=== PATIENT | male | born 1945 | race Hispanic/Latino ===

== ENCOUNTER 2019-01-13 17:43 | Inpatient (IN) | payer MEDICAID, MEDICARE, OTHER ==
[2019-01-13] VITALS (9 sets, daily range): BP systolic 97–177; BP diastolic 49–85
[2019-01-13] MEDS ORDERED: BIVALIRUDIN 250 MG/VIAL IV ONE (18:22)
[2019-01-13] MEDS ORDERED: LIDOCAINE HCL 2% 20ML ONE ×2 (18:23→18:26)
[2019-01-13] MEDS ORDERED: FENTANYL CITRATE PF 50 MCG/1 ML 2ML VIAL ONE (18:23)
[2019-01-13] MEDS ORDERED: IOHEXOL 350 MG/ML 100ML INFUS..BTL IV ONE (18:23)
[2019-01-13] MEDS ORDERED: NITROGLYCERIN 5 MG/ML 10 ML VIAL IV ONE (18:23)
[2019-01-13] MEDS ORDERED: IOHEXOL-350 50ML VIAL IV ONE (18:23)
[2019-01-13] MEDS ORDERED: MIDAZOLAM HCL 1 MG/ML 2ML VIAL ONE (18:23)
[2019-01-13] MEDS ORDERED: DOPAMINE HCL 400 MG/D5%-WATER 0 ML IV ONE (18:37)
[2019-01-13] MEDS ORDERED: ATROPINE SULFATE 0.1 MG/ML 10 ML SYG IVP ONE (18:37)
[2019-01-13] MEDS ORDERED: MORPHINE SULFATE 4 MG/1ML SYG ONE (18:46)
[2019-01-13] MEDS ORDERED: HEPARIN SODIUM 1000UNIT/ML 10ML VIAL ONE (18:51)
[2019-01-13] MEDS ORDERED: TICAGRELOR 90 MG TABLET ONE (19:44)
[2019-01-13] MEDS ORDERED: HYDRALAZINE HCL 20 MG/ML VIAL IV PRN (19:45)
[2019-01-13] MEDS ORDERED: GLUCAGON 1MG KIT 1 MG ML IM PRN (19:45)
[2019-01-13] MEDS ORDERED: SODIUM CHLORIDE 0.9% 1000ML 1,000 ML IV SCH (19:45)
[2019-01-13] MEDS ORDERED: DEXTROSE 50%-WATER 50 ML DISP.SYRIN IV PRN (19:45)
--- NOTE | 2019-01-13 20:25 | NUR ---
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 NITROGLYCERINE DRIP INFUSING AT 10 MCG FROM LAB. DENIES PAIN. [address] [place] ART[address] IN [address]ACE TO RT FEMORAL AREA. ART LINE LEVELED AND ZEROED AND PLACED TO MONITOR WITH GOOD WAVE FORM PRESENT. DENIES PAIN. INSTRUCTED TO KEEP RT LEG STRAIGHT AND BEDREST TILL AM AFTER LINE IS DC.D. ASSESSMENT COMPLETED SEE FLOW SHEET. INSTRUCTED TO CALL FOR PAIN,NUMBNESS IN RT LEG. ALSO TO CALL FOR SOB AND CP. CALL LIGHT PLACED BY HIM.
[2019-01-13 20:40] LABS: HEMOGLOBIN A1C 6.1 % (4.0-6.0)
[2019-01-13] MEDS: INSULIN HUMULIN R 100 UNIT/ML 3ML SQ SCH (21:00)
[2019-01-13] MEDS: TICAGRELOR 90 MG TABLET PO SCH (21:00)
[2019-01-13 21:12] LABS: TROPONIN I 9.66 ng/mL (0.00-0.06)
[2019-01-13] MEDS: ATORVASTATIN CALCIUM 40 MG TABLET PO SCH (22:05)
[2019-01-13] MEDS: CARVEDILOL 6.25 MG TABLET PO SCH (22:06)
[2019-01-14] VITALS (22 sets, daily range): BP systolic 86–132; BP diastolic 34–74
[2019-01-14 03:51] LABS: HEMATOCRIT 37.3 % (42-54); MEAN CORPUSCULAR HEMOGLOBIN 27.7 pg (27.0-33.0); MEAN CORPUSCULAR VOLUME 83.8 fL (79-99); PLATELET COUNT (AUTO) 190 K/uL (130-400); RED BLOOD CELL COUNT(AUTO) 4.46 MIL/uL (4.50-6.20); RED CELL DISTRIBUTION WIDTH 15.3 % (11.0-15.5); WHITE BLOOD COUNT (AUTO) 9.8 K/uL (4.8-10.8)
[2019-01-14 04:25] LABS: CREATININE 1.1 mg/dL (0.5-1.5); POTASSIUM 4.5 mmol/L (3.5-5.1)
[2019-01-14] MEDS ORDERED: ATROPINE SULFATE 0.1 MG/ML 10 ML SYG IVP ONE (05:52)
--- NOTE | 2019-01-14 06:31 | NUR ---
LINE DC.D RT FEMORAL LINE REMOVED AFTER EXPLAINING THE PROCESS. PRESSURE HELD FOR 30 MINUTES AND D STAT USES. SITE WITH OUT BLEEDING OR HEMATOMA. PEDAL PULSE PALPABLE. INSTRUCTED NOT TO BEND RT LEG OR RAISE HEAD. TO CALL NURSE IF HE HAS PAIN,NUMBNESS IN RT LEG. OR FEELS WARMTH OR WETNESS IN RT GROIN. REMINDED OF CONTINUED BEDREST FOR 4 HOURS. AND TO KEEP RT LEG STRAIGHT.
[2019-01-14] MEDS: INSULIN HUMULIN R 100 UNIT/ML 3ML SQ SCH ×4 (07:30→21:00)
--- NOTE | 2019-01-14 08:28 | NUR ---
MD ROUNDS DR. SAMPSON MESA IN TO SEE PATIENT. MD INSTRUCTED TO CONT IN ICU, REPEAT TROPONIN THIS AM AND POSSIBLE DOWNGRADE TO PCCU THIS EVENING. WILL CONT TO MONITOR.
[2019-01-14] MEDS ORDERED: ACETAMINOPHEN EXTRA STRENGTH 500 MG TABLET PO PRN (08:30)
[2019-01-14] MEDS ORDERED: ONDANSETRON HCL 4 MG/2 ML VIAL IVP PRN (08:30)
[2019-01-14] MEDS: CARVEDILOL 6.25 MG TABLET PO SCH ×2 (09:28→21:00)
[2019-01-14] MEDS: FAMOTIDINE/PF 20 MG/2 ML VIAL IV SCH ×2 (09:28→21:14)
[2019-01-14] MEDS: TICAGRELOR 90 MG TABLET PO SCH ×2 (09:29→21:13)
[2019-01-14] MEDS: LISINOPRIL 10 MG TABLET PO SCH (09:29)
--- NOTE | 2019-01-14 09:54 | NUR ---
DC PLAN VISITED WITH PATIENT. PATIENT LIVES WITH SPOUSE. INDEPENDENT ABLE TO PERFORM ADL'S. PATIENT HAS NO SERVICES OR DME'S. FEELS SAFE TO RETURN HOME. Addendum: 01/17/19 at 0955 by ABDOUL GONZALEZ RN CM Amended: Links added.
--- NOTE | 2019-01-14 11:01 | NUR ---
TROPONIN LEVEL CALLED TO ELADIO THOMAS.
[2019-01-14] MEDS: IPRATROPIUM 0.5 MG/2.5 ML INH IH PRN ×2 (14:02→18:54)
[2019-01-14] MEDS: ATORVASTATIN CALCIUM 40 MG TABLET PO SCH (21:14)
[2019-01-14] MEDS: GUAIFENESIN-DM 200/20 MG 10 ML PO PRN (21:56)
[2019-01-15] VITALS (14 sets, daily range): BP systolic 110–132; BP diastolic 41–74
--- NOTE | 2019-01-15 01:53 | NUR ---
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 Patient denies any chest pain, alert X3 when awaken, no distress noted.
[2019-01-15 03:54] LABS: HEMATOCRIT 36.2 % (42-54); MEAN CORPUSCULAR HEMOGLOBIN 27.5 pg (27.0-33.0); MEAN CORPUSCULAR HGB CONC 33.1 g/dL (32.0-36.0); MEAN CORPUSCULAR VOLUME 83.1 fL (79-99); PLATELET COUNT (AUTO) 180 K/uL (130-400); RED BLOOD CELL COUNT(AUTO) 4.36 MIL/uL (4.50-6.20); RED CELL DISTRIBUTION WIDTH 15.5 % (11.0-15.5); WHITE BLOOD COUNT (AUTO) 11.7 K/uL (4.8-10.8)
[2019-01-15 04:03] LABS: CREATININE 1.4 mg/dL (0.5-1.5); POTASSIUM 4.1 mmol/L (3.5-5.1)
[2019-01-15] MEDS: INSULIN HUMULIN R 100 UNIT/ML 3ML SQ SCH ×4 (06:05→21:00)
[2019-01-15] MEDS: GUAIFENESIN-DM 200/20 MG 10 ML PO PRN (06:46)
[2019-01-15] MEDS: IPRATROPIUM 0.5 MG/2.5 ML INH IH PRN (06:50)
[2019-01-15] MEDS ORDERED: CLOPIDOGREL BISULFATE 300 MG TAB PO SCH (07:45)
--- NOTE | 2019-01-15 07:47 | NUR ---
ROUNDS DR. CRAWFORD IN TO SEE PATIENT. MD MADE AWARE OF PT'S C/O SOB AND BRADYCARDIA AT HS. MD STATES HE WILL ADJUST BETA-YOLI AND GIVE PATIENT 1 X DOSE OF LASIX 20MG. PT ALSO TO BE DOWNGRADED TO PCCU STATUS. NEW ORDER TO BE CARRIED OUT.
[2019-01-15] MEDS ORDERED: FUROSEMIDE 10 MG/ML 2ML VIAL IV SCH (08:00)
[2019-01-15] MEDS: LISINOPRIL 10 MG TABLET PO SCH (09:06)
[2019-01-15] MEDS: ASPIRIN 81MG TAB.CHEW PO SCH (09:07)
[2019-01-15] MEDS: FAMOTIDINE 20MG TAB 20 MG TAB PO SCH (09:07)
[2019-01-15] MEDS: CARVEDILOL 6.25 MG TABLET PO SCH ×2 (09:07→19:45)
--- NOTE | 2019-01-15 13:42 | NUR ---
PATIENT TRANSFERRED TO ROOM 225. REPORT GIVEN TO DAWIT BLACKBURN.
[2019-01-15] MEDS: ATORVASTATIN CALCIUM 40 MG TABLET PO SCH (19:46)
[2019-01-15] MEDS: MORPHINE SULFATE 2 MG/ML 1ML SYG IV PRN (19:47)
[2019-01-16] MEDS: MORPHINE SULFATE 2 MG/ML 1ML SYG IV PRN ×2 (01:34→02:55)
[2019-01-16 03:36] LABS: BASOPHILS % (AUTO) 0.5 % (0.0-5.0); EOSINOPHILS % (AUTO) 3.8 % (0.0-8.0); HEMATOCRIT 36.5 % (42-54); MEAN CORPUSCULAR HEMOGLOBIN 27.7 pg (27.0-33.0); MEAN CORPUSCULAR HGB CONC 33.3 g/dL (32.0-36.0); MEAN CORPUSCULAR VOLUME 83.1 fL (79-99); MONOCYTES % (AUTO) 10.1 % (3.0-13.0); NEUTROPHILS % (AUTO) 71.6 % (40.0-77.0); NUCLEATED RED BLOOD CELLS 0.1 % (0.0-0.19); PLATELET COUNT (AUTO) 174 K/uL (130-400); RED BLOOD CELL COUNT(AUTO) 4.39 MIL/uL (4.50-6.20); RED CELL DISTRIBUTION WIDTH 15.3 % (11.0-15.5); WHITE BLOOD COUNT (AUTO) 10.5 K/uL (4.8-10.8)
[2019-01-16 03:52] LABS: ALBUMIN 2.4 g/dL (3.5-5.0); BILIRUBIN,TOTAL 0.6 mg/dL (0.2-1.0); CREATININE 1.1 mg/dL (0.5-1.5); TOTAL PROTEIN, SERUM 6.2 g/dL (6.0-8.3)
[2019-01-16 04:20] VITALS: BP 134/55
[2019-01-16] MEDS: INSULIN HUMULIN R 100 UNIT/ML 3ML SQ SCH (06:11)
[2019-01-16] MEDS: IPRATROPIUM 0.5 MG/2.5 ML INH IH PRN (06:23)
[2019-01-16] MEDS ORDERED: ASPI-1005 PO (07:20)
[2019-01-16] MEDS ORDERED: CLOP75TA14 PO (07:20)
[2019-01-16] MEDS ORDERED: CARV6.2579 PO (07:20)
[2019-01-16] MEDS ORDERED: ATOR40TA69 PO (07:20)
[2019-01-16] MEDS ORDERED: LISI10TA7 PO (07:20)
[2019-01-16 07:30] VITALS: BP 106/52
[2019-01-16] MEDS ORDERED: CLOPIDOGREL BISULFATE 75 MG TAB PO SCH (09:00)
[2019-01-16] MEDS: FAMOTIDINE 20MG TAB 20 MG TAB PO SCH (09:16)
[2019-01-16 09:17] VITALS: BP 106/52
[2019-01-16] MEDS: CARVEDILOL 6.25 MG TABLET PO SCH (09:17)
[2019-01-16] MEDS: ASPIRIN 81MG TAB.CHEW PO SCH (09:18)
[2019-01-16] MEDS: LISINOPRIL 10 MG TABLET PO SCH (09:18)
--- NOTE | 2019-01-16 11:18 | NUR ---
cm note met with patient and daughter and instructed on importance of taking Plavix as ordered. did provide the Good rx coupon for assistance which shows med discounted for $10 per month supply , daughter states they can purchase this med.
== END 2019-01-16 11:40 | disposition home or self-care (01) | DRG 246 ==
LOC: 2CH 18:24 → 2DH 01-15 13:50
PROVIDERS: ADMIT Internal Medicine; ATTEND Internal Medicine
PROC: 4A023N7 Measurement of Cardiac Sampling and Pressure, Left Heart, Percutaneous Approach (ICD-10-PCS; principal; 2019-01-13)
PROC: 027034Z Dilation of Coronary Artery, One Artery with Drug-eluting Intraluminal Device, Percutaneous Approach (ICD-10-PCS; 2019-01-13)
PROC: 02C03ZZ Extirpation of Matter from Coronary Artery, One Artery, Percutaneous Approach (ICD-10-PCS; 2019-01-13)
PROC: B2111ZZ Fluoroscopy of Multiple Coronary Arteries using Low Osmolar Contrast (ICD-10-PCS; 2019-01-13)
DX: I21.19 ST elevation (STEMI) myocardial infarction involving other coronary artery of inferior wall (principal); I50.43 Acute on chronic combined systolic (congestive) and diastolic (congestive) heart failure; I49.01 Ventricular fibrillation; M19.90 Unspecified osteoarthritis, unspecified site; E78.5 Hyperlipidemia, unspecified; F17.210 Nicotine dependence, cigarettes, uncomplicated; I25.10 Atherosclerotic heart disease of native coronary artery without angina pectoris; Z79.899 Other long term (current) drug therapy
CPT/HCPCS: 36415; 80048; 80053; 80061; 82550; 82948; 83036; 83874; 83880; 84484; 85025; 85027; 92928; 93005; 93306; 93458; 94640; 94664; C1725; C1769; C1887; C1894; G0378; J0461; J0583; J1265; J1644; J1940; J2250; J2270; J3010; J3490; Q9967

== ENCOUNTER 2019-02-24 12:55 | Inpatient (IN) | payer MEDICAID, OTHER ==
[~2019-02-24] VITALS: Ht 165.1 cm; Wt 65.3 kg
[~2019-02-24 12:55] MED LIST: ASPI-1005 PO; ATOR40TA69 PO; CARV6.2579 PO; CLOP75TA14 PO; LISI10TA7 PO
[2019-02-24 13:24] LABS: BASOPHILS % (AUTO) 0.7 % (0.0-5.0); EOSINOPHILS % (AUTO) 3.5 % (0.0-8.0); HEMATOCRIT 35.1 % (42-54); MEAN CORPUSCULAR HEMOGLOBIN 26.9 pg (27.0-33.0); MEAN CORPUSCULAR HGB CONC 32.9 g/dL (32.0-36.0); MEAN CORPUSCULAR VOLUME 81.6 fL (79-99); MONOCYTES % (AUTO) 8.8 % (3.0-13.0); PLATELET COUNT (AUTO) 269 K/uL (130-400); RED CELL DISTRIBUTION WIDTH 14.6 % (11.0-15.5); WHITE BLOOD COUNT (AUTO) 10.1 K/uL (4.8-10.8)
[2019-02-24 13:31] LABS: CREATININE 1.4 mg/dL (0.5-1.5); POTASSIUM 4.3 mmol/L (3.5-5.1)
[2019-02-24 13:35] LABS: ALBUMIN 2.7 g/dL (3.5-5.0); BILIRUBIN,TOTAL 0.2 mg/dL (0.2-1.0); TOTAL PROTEIN, SERUM 6.9 g/dL (6.0-8.3)
[2019-02-24] MEDS ORDERED: CLOPIDOGREL BISULFATE 75 MG TAB ONE (15:10)
[2019-02-24] MEDS ORDERED: CARVEDILOL 6.25 MG TABLET PO ONE (15:10)
[2019-02-24] MEDS ORDERED: ENOXAPARIN SODIUM 60 MG/0.6 ML SQ ONE (15:11)
--- NOTE | 2019-02-24 17:15 | NUR ---
ASSUMED CARE OF PT.
[2019-02-24 18:00] VITALS: BP 131/53
[2019-02-24] MEDS ORDERED: DEXTROSE 50%-WATER 50 ML DISP.SYRIN IV PRN (18:45)
[2019-02-24] MEDS ORDERED: NITROGLYCERIN 0.4 MG SL TAB SL PRN (18:45)
[2019-02-24] MEDS ORDERED: LIDOCAINE HCL-MPF 1% 2ML VIAL IJ PRN (18:45)
[2019-02-24] MEDS ORDERED: ACETAMINOPHEN 325 MG TAB PO PRN ×2 (18:45)
[2019-02-24] MEDS ORDERED: POTASSIUM CHLORIDE 10% ELIXIR 20 MEQ/15 ML UDCUP PO PRN (18:45)
[2019-02-24] MEDS ORDERED: SODIUM CHLORIDE 0.9% 10 ML VIAL IVP PRN (18:45)
[2019-02-24] MEDS ORDERED: CLONIDINE HCL 0.1 MG TABLET PO PRN (18:45)
[2019-02-24] MEDS ORDERED: POTASSIUM CHLORIDE 20MEQ/100ML 100 ML IV PRN (18:45)
[2019-02-24] MEDS ORDERED: GLUCAGON 1MG KIT 1 MG ML IM PRN (18:45)
[2019-02-24] MEDS ORDERED: POTASSIUM CHLORIDE 20 MEQ ERTAB PO PRN (18:45)
[2019-02-24] MEDS ORDERED: CARV6.25 PO (18:48)
[2019-02-24] MEDS ORDERED: LISI10TA7 PO (18:48)
--- NOTE | 2019-02-24 18:49 | NUR ---
HOME MEDICATION LIST UPDATED PER [facility]EMALE FAMILY MEMBER LIST PROVIDED AT BEDSIDE.
[2019-02-24] MEDS ORDERED: IPRATROPIUM/ALBUTEROL SULFATE 3 ML SOLUTION IH ONE (18:53)
[2019-02-24] MEDS: IPRATROPIUM/ALBUTEROL SULFATE 3 ML SOLUTION IH PRN (18:55)
[2019-02-24] MEDS ORDERED: ENOXAPARIN SODIUM 80 MG/0.8 ML SQ ONE (20:00)
[2019-02-24] MEDS: ATORVASTATIN CALCIUM 20 MG TABLET PO SCH (21:00)
[2019-02-24] MEDS: CARVEDILOL 6.25 MG TABLET PO SCH (21:00)
[2019-02-24] MEDS: INSULIN R PO SSI SQ SCH (21:00)
[2019-02-24 21:40] LABS: CREATINE KINASE, TOTAL 24 U/L (21-232); MYOGLOBIN 71 ng/mL (10-92); TROPONIN I < 0.04 ng/mL (0.00-0.06)
[2019-02-25] VITALS (14 sets, daily range): BP systolic 110–152; BP diastolic 48–75
[2019-02-25 01:02] LABS: HEMATOCRIT 33.9 % (42-54); MEAN CORPUSCULAR HEMOGLOBIN 26.7 pg (27.0-33.0); MEAN CORPUSCULAR HGB CONC 32.7 g/dL (32.0-36.0); MEAN CORPUSCULAR VOLUME 81.5 fL (79-99); PLATELET COUNT (AUTO) 241 K/uL (130-400); RED BLOOD CELL COUNT(AUTO) 4.16 MIL/uL (4.50-6.20); RED CELL DISTRIBUTION WIDTH 14.4 % (11.0-15.5); WHITE BLOOD COUNT (AUTO) 9.4 K/uL (4.8-10.8)
[2019-02-25 01:20] LABS: ALBUMIN 2.4 g/dL (3.5-5.0); BILIRUBIN,TOTAL 0.5 mg/dL (0.2-1.0); CREATININE 1.3 mg/dL (0.5-1.5); POTASSIUM 4.4 mmol/L (3.5-5.1); TOTAL PROTEIN, SERUM 6.3 g/dL (6.0-8.3); TROPONIN I 0.05 ng/mL (0.00-0.06)
[2019-02-25] MEDS: IPRATROPIUM/ALBUTEROL SULFATE 3 ML SOLUTION IH PRN ×2 (06:05→18:50)
[2019-02-25] MEDS: INSULIN R PO SSI SQ SCH ×3 (06:10→21:00)
[2019-02-25] MEDS ORDERED: IOHEXOL-350 50ML VIAL IV ONE (07:06)
[2019-02-25] MEDS ORDERED: IOHEXOL 350 MG/ML 100ML INFUS..BTL IV ONE (07:06)
[2019-02-25] MEDS ORDERED: BIVALIRUDIN 250 MG/VIAL IV ONE (07:06)
[2019-02-25] MEDS ORDERED: NITROGLYCERIN 5 MG/ML 10 ML VIAL IV ONE (07:06)
[2019-02-25] MEDS ORDERED: LIDOCAINE HCL 2% 20ML ONE (07:07)
[2019-02-25] MEDS ORDERED: FENTANYL CITRATE PF 50 MCG/1 ML 2ML VIAL ONE (07:50)
[2019-02-25] MEDS ORDERED: MIDAZOLAM HCL 1 MG/ML 2ML VIAL ONE (07:50)
[2019-02-25] MEDS: ASPIRIN 325MG EC TAB 325 MG TABLET.DR PO SCH (09:00)
[2019-02-25] MEDS: CLOPIDOGREL BISULFATE 75 MG TAB PO SCH (09:00)
[2019-02-25] MEDS ORDERED: NITROGLYCERIN 0.4 MG SL TAB SL PRN (09:15)
[2019-02-25] MEDS ORDERED: SODIUM CHLORIDE 0.9% 1000ML 1,000 ML IV SCH (09:15)
[2019-02-25] MEDS ORDERED: METOPROLOL TARTRATE 1 MG/ML 5ML VIAL IV PRN (09:15)
[2019-02-25] MEDS ORDERED: ASPIRIN 325MG EC TAB 325 MG TABLET.DR PO ONE (09:17)
[2019-02-25] MEDS ORDERED: CLOPIDOGREL BISULFATE 75 MG TAB ONE (09:18)
[2019-02-25] MEDS: FAMOTIDINE 20MG TAB 20 MG TAB PO SCH (12:06)
[2019-02-25] MEDS: CARVEDILOL 6.25 MG TABLET PO SCH ×2 (12:06→20:08)
--- NOTE | 2019-02-25 12:09 | NUR ---
as per report aspirin and plavix were given in lab nurse so medication were held on the floor
--- NOTE | 2019-02-25 16:31 | NUR ---
DC PLAN PATIENT LIVES WITH SPOUSE. INDEPENDENT ABLE TO PERFORM ADL'S. PATIENT HAS NO SERVICES OR DMES. FEELS SAFE TO RETURN HOME. Addendum: 02/25/19 at 1633 by ABDOUL GONZALEZ RN CM Amended: Links added.
[2019-02-25] MEDS: ATORVASTATIN CALCIUM 20 MG TABLET PO SCH (20:08)
--- NOTE | 2019-02-25 20:09 | NUR ---
Sheath removed at 1400. Stopped holding pressure at 1430, small hematoma felt near the insertion site but surrounding site soft and non tender.
[2019-02-26 04:00] VITALS: BP 135/61
[2019-02-26] MEDS: IPRATROPIUM/ALBUTEROL SULFATE 3 ML SOLUTION IH PRN (06:17)
[2019-02-26] MEDS: INSULIN R PO SSI SQ SCH ×2 (06:54→11:30)
[2019-02-26 07:40] VITALS: BP 135/68
[2019-02-26] MEDS: CLOPIDOGREL BISULFATE 75 MG TAB PO SCH (08:17)
[2019-02-26] MEDS: FAMOTIDINE 20MG TAB 20 MG TAB PO SCH (08:17)
[2019-02-26 08:18] VITALS: BP_SYST 135
[2019-02-26] MEDS: CARVEDILOL 6.25 MG TABLET PO SCH (08:18)
[2019-02-26] MEDS: ASPIRIN 325MG EC TAB 325 MG TABLET.DR PO SCH (08:18)
[2019-02-26] MEDS ORDERED: CLOPIDOGREL BISULFATE 75 MG TAB PO SCH (09:00)
== END 2019-02-26 12:51 | disposition home or self-care (01) | DRG 247 ==
LOC: EDH 12:55 → EDHIP 12:56 → 2AH 19:35
PROVIDERS: ADMIT Internal Medicine; ATTEND Internal Medicine
PROC: 027136Z Dilation of Coronary Artery, Two Arteries with Three Drug-eluting Intraluminal Devices, Percutaneous Approach (ICD-10-PCS; principal; 2019-02-25)
PROC: 4A023N7 Measurement of Cardiac Sampling and Pressure, Left Heart, Percutaneous Approach (ICD-10-PCS; 2019-02-25)
PROC: B2111ZZ Fluoroscopy of Multiple Coronary Arteries using Low Osmolar Contrast (ICD-10-PCS; 2019-02-25)
PROC: B2151ZZ Fluoroscopy of Left Heart using Low Osmolar Contrast (ICD-10-PCS; 2019-02-25)
DX: I21.19 ST elevation (STEMI) myocardial infarction involving other coronary artery of inferior wall (principal); I25.110 Atherosclerotic heart disease of native coronary artery with unstable angina pectoris; I25.2 Old myocardial infarction; I10 Essential (primary) hypertension; F17.200 Nicotine dependence, unspecified, uncomplicated; E78.5 Hyperlipidemia, unspecified; Z95.5 Presence of coronary angioplasty implant and graft; Z88.8 Allergy status to other drugs, medicaments and biological substances
CPT/HCPCS: 36415; 71046; 80053; 80061; 82550; 82948; 83874; 84484; 85025; 85027; 93005; 93458; 94640; 94664; 99156; 99157; C1725; C1769; C1887; C1894; C9600; C9601; G0378; J0583; J1644; J1650; J2250; J3010; J3490; Q9967